=== PATIENT | male | born 1935 | race Caucasian/White ===

== ENCOUNTER 2016-06-22 18:36 | Observation (INO) | payer OTHER, MEDICARE ==
[~2016-06-22] VITALS: Ht 190.5 cm; Wt 116.3 kg
[~2016-06-22 18:36] MED LIST: ADVAIR 100/501 DISK IH; ALLOPURINOL300 MG PO; AMIODARONE HCL200 MG PO; ASCORBIC ACID250 MG PO; ASPIRIN81 M2 PO; ATENOLOL25 MG PO; Advair 100/50 Diskus IH; Berocca Plus PO; Coumadin,Jantoven PO; ENDOCET 5-3251 EACH PO; Feosol PO; GLIPIZIDE XL5 MG PO; Glucophage PO; Glucotrol XL PO; HYDROCHLOROTH12.5 M3 PO; JANUVIA25 M1 PO; KLONOPIN1 MG PO; KlonoPIN PO; LIPITOR40 MG PO; LISINOPRIL2.5 MG PO; Lipitor PO; MULTIPLE VITAM1 EACH PO; NORVASC10 MG PO; Niaspan,Slo-Niacin PO; Norvasc PO; OxyCONTIN PO; PACERONE400 MG PO; PERCOCET 5/31 TABLET PO; PRILOSEC OTC20 MG PO; PROZAC40 MG PO; PROzac PO; Pradaxa PO; PriLOSEC PO; Skelaxin PO; Tenormin PO; Theragran PO; VITAMIN D31000 UNI2 PO; Vitamin D PO; Vitamin-E PO; XARELTO20 MG PO; ZESTRIL,PRINIVI10 M1 PO; ZITHROMAX Z-PA250 MG PO; ZYLOPRIM100 MG PO; Zestril,Prinivil PO; Zyloprim PO; oxyCODONE PO
[2016-06-22 19:52] LABS: HEMATOCRIT 39.4 % (38.0-50.0); MCH 29.1 PG (29.0-34.0); MCHC 32.2 G/DL (30.0-36.0); MCV 90.2 FL (86-99); MEAN PLAT.VOLUME 11.8 uM^3 (9.0-12.4); PLATELET COUNT 182 K/uL (156-360); RBC DIS.WIDTH-CV 14.9 % (11.8-14.6); RBC DIS.WIDTH-SD 48.9 % (39-53); RED BLOOD COUNT 4.37 M/uL (4.00-5.50)
[2016-06-22 20:01] LABS: CHLORIDE 107 mEq/L (99-109); POTASSIUM 4.8 mEq/L (3.7-5.4)
[2016-06-22 20:02] LABS: SODIUM 139 mEq/L (136-147)
[2016-06-22 20:03] LABS: GLUCOSE 164 mg/dL (70-99)
[2016-06-22 20:05] LABS: ANION GAP 13 MEQ/L (2-14)
[2016-06-22 20:07] LABS: GFR ESTIMATE (CALCULATED) 48 mL/min/
[2016-06-22 20:08] LABS: UREA NITROGEN (BUN) 47 mg/dL (9-23)
[2016-06-22 20:14] LABS: TROP-I INTERPRETATION NEGATIVE; TROPONIN-I < 0.01 ng/mL (0.0-0.30)
[2016-06-22] MEDS ORDERED: LO-DOSE ASPIRIN81 M2 PO (21:59)
[2016-06-22] MEDS ORDERED: OMEPRAZOLE20 MG PO (22:00)
[2016-06-22] MEDS ORDERED: WELLBUTRIN XL150 MG PO (22:02)
[2016-06-23 00:55] VITALS: BP 127/66
[2016-06-23 02:20] LABS: TROP-I INTERPRETATION NEGATIVE; TROPONIN-I 0.01 ng/mL (0.0-0.30)
[2016-06-23 04:00] VITALS: BP 103/56
[2016-06-23 04:04] LABS: HDL CHOLESTEROL 41 MG/DL (Desirable>=40); LDL CHOLESTEROL 56 mg/dL (Desirable<100); NON-HDL CHOLESTEROL 70 mg/dL (Desirable<160); TOTAL CHOLESTEROL 111 mg/dL (Desirable<200); TRIGLYCERIDES 70 MG/DL (Normal: <150)
[2016-06-23 07:29] LABS: TROP-I INTERPRETATION NEGATIVE; TROPONIN-I 0.02 ng/mL (0.0-0.30)
[2016-06-23 07:55] VITALS: BP 135/73
[2016-06-23 08:38] LABS: POINT-OF-CARE METER ID UU13113700
[2016-06-23 13:29] LABS: POINT-OF-CARE METER ID UU14162513
== END 2016-06-23 14:20 | disposition home or self-care (01) ==
LOC: EME 18:36 → EDOF 22:15 → 5WEST 22:15
PROVIDERS: Internal Medicine; Physician Assistant Medical
DX: I25.119 Atherosclerotic heart disease of native coronary artery with unspecified angina pectoris (principal); R94.31 Abnormal electrocardiogram [ECG] [EKG]; E11.65 Type 2 diabetes mellitus with hyperglycemia; I25.2 Old myocardial infarction; I48.0 Paroxysmal atrial fibrillation; I48.92 Unspecified atrial flutter; G47.33 Obstructive sleep apnea (adult) (pediatric); I12.9 Hypertensive chronic kidney disease with stage 1 through stage 4 chronic kidney disease, or unspecified chronic kidney disease; N18.3 Chronic kidney disease, stage 3 (moderate); E78.5 Hyperlipidemia, unspecified; G89.29 Other chronic pain; J45.909 Unspecified asthma, uncomplicated; F32.9 Major depressive disorder, single episode, unspecified; K21.9 Gastro-esophageal reflux disease without esophagitis; M10.9 Gout, unspecified; Z95.1 Presence of aortocoronary bypass graft
CPT/HCPCS: 71020; 80048; 80061; 82948; 84484; 85027; 93005; 94640 76; 99281; 99285; G0378; J1815